=== PATIENT | female | born 1995 | race Two or more races ===

== ENCOUNTER 2017-12-26 23:13 | Emergency (ER) | payer MEDICAID ==
[~2017-12-26] VITALS: Ht 147.3 cm; Wt 44.5 kg
--- NOTE | 2017-12-26 23:35 | NUR ---
DR ROXANN COBIAN MD AT BEDSIDE FOR MSE.
[2017-12-26] MEDS ORDERED: LORAZEPAM 2 MG/1 ML VIAL ONE (23:43)
[2017-12-26] MEDS ORDERED: LORAZEPAM 2 MG/1 ML VIAL IM ONE (23:45)
--- NOTE | 2017-12-26 23:56 | NUR ---
LAB AT PT BEDSIDE FOR BLOOD DRAW.
[2017-12-27 00:06] LABS: *BILIRUBIN,URIN NEGATIVE (NEGATIVE); *BLOOD, URINE Trace-intact (NEGATIVE); *CLARITY,URINE CLEAR (CLEAR); *COLOR,URINE YELLOW (YELLOW); *KETONES,URINE NEGATIVE (NEGATIVE); *PROTEIN,URINE NEGATIVE (NEGATIVE); *UROBILINOGEN,URINE 0.2 E.U./dl (NORMAL); LEUKOCYTE ESTERASE ,URINE NEGATIVE (NEGATIVE); NITRITE, URINE NEGATIVE (NEGATIVE); UGLUCOSE NEGATIVE (NEGATIVE)
[2017-12-27 00:14] LABS: BASOPHILS # (AUTO) 0.1 K/uL (0.0-8.0); BASOPHILS % (AUTO) 2.2 % (0.0-2.0); EOSINOPHILS # (AUTO) 0.1 K/uL (0.0-0.7); EOSINOPHILS % (AUTO) 2.6 % (0.0-7.0); HEMATOCRIT 38.6 % (31.2-41.9); HEMOGLOBIN 13.8 g/dL (10.9-14.3); LYMPHOCYTES # (AUTO) 2.1 K/uL (20.0-40.0); LYMPHOCYTES % (AUTO) 42.6 % (20.5-51.5); MEAN CORPUSCULAR HEMOGLOBIN 31.3 uug (24.7-32.8); MEAN CORPUSCULAR HGB CONC 36 g/dL (32.3-35.6); MEAN CORPUSCULAR VOLUME 87.8 fL (75.5-95.3); MONOCYTES # (AUTO) 0.2 K/uL (2.0-10.0); MONOCYTES % (AUTO) 4.9 % (0.0-11.0); NEUTROPHILS # (AUTO) 2.4 K/uL (1.8-8.9); NEUTROPHILS % (AUTO) 47.7 % (38.5-71.5); PLATELET COUNT (AUTO) 280 K/uL (179-408); RED BLOOD CELL COUNT(AUTO) 4.39 MIL/uL (3.63-4.92)
[2017-12-27 00:16] LABS: BACTERIA,URINE FEW /HPF (NONE SEEN); MUCUS,URINE FEW /LPF (0-FEW); RBC,URINE 0-3 /HPF (0-3); SQUAMOUS EPITHELIAL CELL,UR FEW /HPF (NONE SEEN); WBC,URINE 0-3 /HPF (0-3)
[2017-12-27 00:18] LABS: BILIRUBIN,DIRECT 0.1 mg/dL (0.0-0.2); BILIRUBIN,TOTAL 0.3 mg/dL (0.2-1.0); CREATININE 0.7 mg/dL (0.6-1.3); POTASSIUM 3.8 mmol/L (3.5-5.1)
[2017-12-27 00:23] LABS: *AMPHETAMINE, URINE NEGATIVE (NEGATIVE); *BARBITURATE, URINE NEGATIVE (NEGATIVE); *CANNABINOID, URINE NEGATIVE (NEGATIVE); *COCCAINE, URINE NEGATIVE (NEGATIVE); *OPIATE, URINE NEGATIVE (NEGATIVE); *PHENCYCLIDINE SCREEN,URINE NEGATIVE (NEGATIVE)
--- NOTE | 2017-12-27 00:49 | NUR ---
Patient discharged to home in stable conditon. Written and verbal after care instructions given. Patient verbalizes understanding of instructions. Pt ambulated from ER w/ steady gait. Denies dizziness, sob, summers, n/v, anxiety, or pain at this time. No distress noted. Pt accompanied by friend.
[2017-12-27 00:51] VITALS: BP 118/73
== END 2017-12-27 00:52 | disposition home or self-care (01) ==
LOC: ER 23:13
DX: F41.1 Generalized anxiety disorder (principal); F12.10 Cannabis abuse, uncomplicated
CPT/HCPCS: 36415; 80048; 80076; 80307; 81001; 83690; 84703; 85025; 96372; 99284; A4663; J2060

== ENCOUNTER 2017-12-27 13:39 | Emergency (ER) | payer MEDICAID ==
[~2017-12-27] VITALS: Ht 129.5 cm; Wt 44.5 kg
[2017-12-27] MEDS ORDERED: ONDANSETRON ODT 4 MG TAB.RAPDIS SL ONE (14:00)
[2017-12-27] MEDS ORDERED: LORAZEPAM 0.5 MG TABLET PO ONE (14:00)
[2017-12-27] MEDS ORDERED: ONDANSETRON ODT 4 MG TAB.RAPDIS ONE (14:01)
[2017-12-27] MEDS ORDERED: LORAZEPAM 1 MG TABLET ONE (14:16)
--- NOTE | 2017-12-27 14:37 | NUR ---
Patient discharged to home in stable conditon & steady gait. Written and verbal after care instructions given. Patient verbalizes understanding of instructions.
== END 2017-12-27 14:38 | disposition home or self-care (01) ==
LOC: ER 13:39
DX: F41.0 Panic disorder [episodic paroxysmal anxiety] (principal); F41.9 Anxiety disorder, unspecified; F12.10 Cannabis abuse, uncomplicated
CPT/HCPCS: 99284; A4663; Q0162